=== PATIENT | female | born 1940 | race Caucasian/White ===

== ENCOUNTER 2016-09-08 06:59 | Day surgery (SDC) | payer OTHER ==
[2016-09-08] MEDS ORDERED: DIAZEPAM 5 MG TAB PO ONE (07:04)
[2016-09-08] MEDS ORDERED: ASPIRIN EC 325 MG TAB PO ONE (07:04)
[2016-09-08] MEDS ORDERED: NS 1,000 ML IV ONE (07:04)
[2016-09-08] MEDS ORDERED: FAMOTIDINE 20 MG TAB PO ONE (07:04)
--- NOTE | 2016-09-08 07:29 | CPEKG ---
Heart Rate: 64 RR Interval: 938 P-R Interval: 212 QRSD Interval: 86 QT Interval: 432 QTC Interval: 446 QRS [place]: 37 T Wave [place]: 0 EKG Severity - ABNORMAL ECG - EKG Impression: ATRIAL-PACED RHYTHM EKG Impression: BORDERLINE T ABNORMALITIES, DIFFUSE LEADS Electronically Signed By: Scotty Hartman 08-Sep-2016 19:37:39
[2016-09-08 07:40] LABS: % IMMATURE GRANULYOCYTES 0.2 % (0.0-1.1); ABSOLUTE IMMATURE GRANULOCYTES 0.01 10^3/uL (0.00-0.10); ADD DIFF? NO; ADD MORPH? NO; ADD SCAN? NO; ATYPICAL LYMPHOCYTE FLAG 10 (0-99); FRAGMENT RBC FLAG 0 (0-99); HEMATOCRIT 38.9 % (38.0-47.0); LEFT SHIFT FLG 0 (0-99); LIPEMIA HEMOLYSIS FLAG 80 (0-99); MEAN CELL HEMOGLOBIN 28.1 pg (27.9-34.1); MEAN CELL HEMOGLOBIN CONCENTR. 33.4 g/dL (32.4-36.7); MEAN CELL VOLUME 84.2 fL (81.5-99.8); PLATELET CLUMPS FLAG 0 (0-99); PLATELET COUNT 238 10^3/uL (150-400); RED BLOOD CELL COUNT 4.62 10^6/uL (4.18-5.33)
[2016-09-08 07:48] LABS: INR 1.5 (0.83-1.16); PROTIME(PATIENT) 18.1 SEC (12.0-15.0)
[2016-09-08] MEDS ORDERED: LIDOCAINE 1% 30 ML SDV ONE (07:55)
[2016-09-08 07:56] LABS: ANION GAP 10 mEq/L (8-16); CALCIUM 9.2 mg/dL (8.5-10.4); CARBON DIOXIDE 27 mEq/l (22-31); CHLORIDE 104 mEq/L (97-110); CHOLESTEROL 190 mg/dL (140-220); CHOLESTEROL/HDL RATIO 4.32 RATIO (1.00-4.44); CREATININE 0.7 mg/dL (0.6-1.0); GLOMERULAR FILTRATION RATE > 60; GLUCOSE 116 mg/dL (70-100); HIGH DENSITY LIPOPROTEIN 44 mg/dL (40-85); LDL/HDL RATIO 2.61 RATIO (1.00-3.22); LOW DENSITY LIPOPROTEIN 115 mg/dL (80-100); MAGNESIUM 1.8 mg/dL (1.6-2.3); NON-HIGH DENSITY LIPOPROTEIN 146 mg/dL (90-129); POTASSIUM 4.2 mEq/L (3.5-5.2); SODIUM 141 mEq/L (134-144); TRIGLYCERIDE 159 mg/dL (35-135); VERY LOW DENSITY LIPOPROTEINS 31 mg/dL (8-25)
[2016-09-08] MEDS ORDERED: fentaNYL 100 MCG/2 ML INJ ONE (07:56)
[2016-09-08] MEDS ORDERED: MIDAZOLAM 2 MG/2 ML VIAL ONE (07:56)
[2016-09-08] MEDS ORDERED: HEPARIN 10,000 UNIT/10 ML MDV ONE (07:56)
[2016-09-08] MEDS ORDERED: VERAPAMIL 5 MG/2 ML VIAL ONE (07:56)
[2016-09-08] MEDS ORDERED: IOPAMIDOL (ISOVUE-370) 150 ML BTL IV ONE ×2 (07:56→09:04)
[2016-09-08] MEDS ORDERED: ONDANSETRON 4 MG/2 ML VIAL IVP PRN (09:16)
[2016-09-08] MEDS ORDERED: NITROGLYCERIN 0.4 MG BTL SL PRN (09:16)
[2016-09-08] MEDS ORDERED: ATROPINE SULFATE 1 MG/10 ML SYR IVP PRN (09:16)
--- NOTE | 2016-09-08 09:20 | PDDXCAT ---
Diagnostic Cath Note - . Date: 09/08/16 [employer]: Mg Indication: CCC Class III and IV angina on medical treatment - Procedure Access: right wrist Procedure: left heart catheterization, coronary angiography, left ventriculogram - Materials Left Heart Cath size: 5F Left Heart Cath materials: other (SiteSeer) - Findings-Left Heart Catheterization LM: unobstructed LAD: unobstructed LCX: unobstructed RCA: dominant: Unobstructed EDP: 18 mm of mercury LVEF: 65% with hand injection Wall motion: normal Complications: none Estimated blood loss: <50ml Closure method: TR Band Assessment: 1. symptoms of nausea of uncertain etiology. 2. dynamic EKG changes with lateral T-wave inversion of uncertain etiology. 3. nonobstructive atherosclerotic cardiovascular disease. 4. normal left ventricular systolic function Plan: Return care to Dr. Monterroso. Broad differential diagnosis for persistent nausea. Continue aggressive secondary prevention for nonobstructive coronary artery disease. Patient Problems: Problems Problem Status Diagnosed Atrial flutter Acute Iatrogenic pneumothorax Acute Pacemaker Acute Acquired hypothyroidism Active Osteoarthritis of multiple joints Active back pain Active factor V mutatioin Active obstructive sleep apnea Active phlebitis history Active
== END 2016-09-08 12:10 | disposition home or self-care (01) ==
LOC: FCATH 06:59
PROVIDERS: ATTEND Internal Medicine Interventional Cardiology
PROC: 4A023N7 Measurement of Cardiac Sampling and Pressure, Left Heart, Percutaneous Approach (ICD-10-PCS; principal; 2016-09-08)
PROC: B2111ZZ Fluoroscopy of Multiple Coronary Arteries using Low Osmolar Contrast (ICD-10-PCS; 2016-09-08)
PROC: B2151ZZ Fluoroscopy of Left Heart using Low Osmolar Contrast (ICD-10-PCS; 2016-09-08)
DX: R11.0 Nausea (principal); I25.10 Atherosclerotic heart disease of native coronary artery without angina pectoris; R94.31 Abnormal electrocardiogram [ECG] [EKG]; I48.91 Unspecified atrial fibrillation; D68.51 Activated protein C resistance; Z79.01 Long term (current) use of anticoagulants; E03.9 Hypothyroidism, unspecified; G47.33 Obstructive sleep apnea (adult) (pediatric); R73.03 Prediabetes; I49.5 Sick sinus syndrome; E78.5 Hyperlipidemia, unspecified; Z95.0 Presence of cardiac pacemaker
CPT/HCPCS: 93005; 93458; C1769; J1644; J2250; J3010; Q9967

== ENCOUNTER → 2017-04-02 | Outpatient (CLI) | payer OTHER | LOC: FIMAGING 18:58 | PROVIDERS: ATTEND Internal Medicine | DX: M79.674 Pain in right toe(s) (principal) ==

== ENCOUNTER 2017-05-03 18:43 | Emergency (ER) | payer OTHER ==
--- NOTE | 2017-05-03 19:22 | CPEKG ---
Heart Rate: 64 RR Interval: 938 P-R Interval: 200 QRSD Interval: 80 QT Interval: 392 QTC Interval: 405 QRS [place]: 47 T Wave [place]: -43 EKG Severity - ABNORMAL ECG - EKG Impression: ATRIAL-PACED RHYTHM EKG Impression: BORDERLINE T ABNORMALITIES, DIFFUSE LEADS Electronically Signed By: Evelina Simms 03-May-2017 23:13:54
[2017-05-03 19:31] LABS: % IMMATURE GRANULYOCYTES 0.2 % (0.0-1.1); ABSOLUTE IMMATURE GRANULOCYTES 0.02 10^3/uL (0.00-0.10); ADD DIFF? NO; ADD MORPH? NO; ADD SCAN? NO; ATYPICAL LYMPHOCYTE FLAG 10 (0-99); FRAGMENT RBC FLAG 0 (0-99); HEMATOCRIT 38.3 % (38.0-47.0); HEMOGLOBIN 12.9 g/dL (12.6-16.3); LEFT SHIFT FLG 0 (0-99); LIPEMIA HEMOLYSIS FLAG 80 (0-99); MEAN CELL HEMOGLOBIN 28.7 pg (27.9-34.1); MEAN CELL HEMOGLOBIN CONCENTR. 33.7 g/dL (32.4-36.7); MEAN CELL VOLUME 85.1 fL (81.5-99.8); MEAN PLATELET VOLUME 11.1 fL (8.7-11.7); PLATELET CLUMPS FLAG 10 (0-99); PLATELET COUNT 262 10^3/uL (150-400); RED CELL DISTRIBUTION WIDTH 13.9 % (11.5-15.2)
--- NOTE | 2017-05-03 19:37 | EDPHY ---
H & P Stated Complaint: Dizzy,had pacemaker interrogated,had afib during night,doesn' t feel good Time Seen by Provider: 05/03/17 19:25 HPI/ROS: CHIEF COMPLAINT: Lightheadedness HISTORY OF PRESENT ILLNESS: This patient is a 76 year old female with history of vertigo and atrial fibrillation (pacemaker) arriving with her complaining of dizziness onset yesterday morning upon waking. She felt very imbalanced and as if the room was spinning. Associated with nausea. She took Meclizine which relieved her typical vertigo symptoms. Last night, she felt as if she could not catch her breath while lying in bed. Today, her dizziness has resolved but she feels lightheaded. She visited her trade specialist at [facility] today, who interrogated her pacemaker and noted she was in atrial fibrillation last night during the time that she was short of breath. She usually feels short of breath when she is in atrial fibrillation. She continues to feel lightheaded at this time. The lightheaded sensation is fairly frequent for her, but different from the vertigo. No fever, vomiting, chest pain, or other associated symptoms. REVIEW OF SYSTEMS: A 10 point review of systems was performed and is negative with the exception of the elements mentioned in the history of present illness. - Personal History Current Tetanus Diphtheria and Acellular Pertussis (TDAP): Yes Tetanus Vaccine Date: 2009 - Medical/Surgical History PMH: Hypothyroid, Hypertension, Vertigo, Migraines, Obstructive sleep apnea, Atrial fibrillation (pacemaker), Factor 5 Leiden, Thyroidectomy, Hysterectomy, Lumpectomy Hx Asthma: Yes Hx Chronic Respiratory Disease: No Hx Diabetes: Yes Hx Cardiac Disease: Yes Hx Renal Disease: No Hx Cirrhosis: No Hx Alcoholism: No Hx HIV/AIDS: No Hx Splenectomy or Spleen Trauma: No Other PMH: Hypothyroid, HTN, Factor 5 Leiden, vertigo, migraines, thyroidectomy , hysterectomy, lumpectomy, Oxygen at night, NICK, pacemaker for afib - Social History Smoking Status: Never smoked Additional Social History: Nonsmoker. . at bedside. Lives in [place]. - Physical Exam Exam: General Appearance: Alert, no distress Eyes: Slight nystagmus with rightward gaze. Pupils equal and round, no conjunctival pallor or injection ENT, Mouth: Mucous membranes moist Neck: Normal inspection Respiratory: Lungs are clear to auscultation Cardiovascular: Regular rate and rhythm Gastrointestinal: Abdomen is soft and non- tender Neurological: A&O, nonfocal, normal gait Skin: Warm and dry, no rash Extremities: Nontender, no pedal edema Psychiatric: Mood and affect normal Constitutional: Initial Vital Signs Temperature (C) 36.6 C 05/03/17 18:57 Heart Rate 71 05/03/17 18:57 Respiratory Rate 18 05/03/17 18:57 Blood Pressure 162/74 H 05/03/17 18:57 O2 Sat (%) 94 05/03/17 18:57 O2 Delivery Mode Room Air Allergies/Adverse Reactions: amiodarone Allergy (Severe, Verified 05/03/17 18:57) scopolamine Allergy (Intermediate, Verified 05/03/17 18:57) Rash Opioids - Morphine Analogues Allergy (Mild, Verified 05/03/17 18:57) Other-Enter Comments Antihistamines - Ethanolamine Allergy (Verified 05/03/17 18:57) Anxiety Home Medications: Medication Instructions Recorded Cholecalciferol Vit D3 [Vitamin D3 4,000 units PO DAILY 05/05/12 2000 units] Cyclobenzaprine [Flexeril 10 MG 5 mg PO HS 05/05/12 (*)] [place]-3 Fatty Acids [Fish Oil 1000 1,000 mg PO BID 05/05/12 mg (*)] traZODone [traZODONE 50MG (*)] 25 mg PO HS 05/05/12 Omeprazole 20 mg PO DAILY 12/28/13 Levothyroxine [Synthroid 50 mcg 50 mcg PO DAILY06 #30 tab 07/09/14 (*)] Albuterol [Proventil] 17 gm IH Q6 PRN 11/03/15 Colestipol HCl [Colestid (*)] 1 gm PO BID 11/03/15 Magnesium Oxide [Magnesium Oxide 250 mg PO DAILY 11/03/15 400 mg (*)] Propafenone HCl [Rythmol 150mg (*)] 150 mg PO TID 11/03/15 Vitamin E 400 unit PO DAILY 11/03/15 amLODIPine BESYLATE [Norvasc 5 mg 5 mg PO HS 11/03/15 (*)] Acetaminophen [Tylenol 325mg (*)] 650 mg PO Q4 PRN #0 tab 11/04/15 Coumadin 6 mg PO DAILY 09/08/16 Coumadin 5MG (*) 5 mg PO DAILY 09/08/16 Meclizine HCl [Meclizine HCl 25 mg 25 mg PO 05/03/17 (RX,OTC)] Medical Decision Making - Diagnostics EKG Interpretation: EKG interpreted by me reveals atrial paced rhythm, rate 64. Interpretation: apaced rhythm. ED Course/Re-evaluation: 76 year old female with history of afib and vertigo presents with lightheadedness. Plan to consult with СЕРГЕЙ Guido as requested by the patient. Plan for labs including CBC, BMP, and Coag. Plan for EKG. EKG shows atrial paced rhythm. 19:44 Consulted with СЕРГЕЙ Guido. This patient has a frequent history of dizziness and lightheadedness symptoms. He will follow up with her in the office. The patient is okay to be discharged home. Labs unremarkable. Plan to discharge home in good condition. Follow up and return precautions discussed. The patient is comfortable with this plan. Differential Diagnosis: Differential diagnosis includes though is not limited to cardiac dysrhythmia, CVA, TIA, GI bleed, sepsis, hypoglycemia. - Data Points Laboratory Results: Laboratory Results 05/03/17 19:25 05/03/17 19:25 Medications Given: Discontinued Medications Lorazepam (Ativan Injection) 0.5 mg IVP EDNOW ONE Stop: 05/03/17 19:49 Last Admin: 05/03/17 20:30 Dose: Not Given Departure - Departure Disposition: Home, Routine, Self-Care Clinical Impression: Dizziness Condition: Good Instructions: Dizziness (ED) Additional Instructions: 1. Follow up with your primary care provider in 2-3 days for continued evaluation. 2. Return to the emergency department for chest pain, shortness of breath, severe headache, numbness, weakness, worsening dizziness, vomiting, or other worsening of condition. Referrals: Aly Monterroso MD [Primary Care Provider] - As per Instructions Report Scribed for: Evelina Simms Report Scribed by: Cass Scott Date of Report: 05/03/17 Time of Report: 19:37 Physician Review and Approval Statement: 05/03/17 19:37 Portions of this note were transcribed by a director medical. I personally performed a history, physical exam, medical decision making, and confirmed accuracy of information the transcribed note.
[2017-05-03] MEDS ORDERED: LORazepam 2 MG/ML INJ IVP ONE (19:48)
[2017-05-03 19:59] LABS: INR 1.87 (0.83-1.16); PROTIME(PATIENT) 21.6 SEC (12.0-15.0)
[2017-05-03 20:23] LABS: ANION GAP 15 mEq/L (8-16); CALCIUM 9.2 mg/dL (8.5-10.4); CARBON DIOXIDE 18 mEq/l (22-31); CHLORIDE 104 mEq/L (97-110); CREATININE 0.7 mg/dL (0.6-1.0); GLOMERULAR FILTRATION RATE > 60; GLUCOSE 94 mg/dL (70-100); POTASSIUM 4.4 mEq/L (3.5-5.2); SODIUM 137 mEq/L (134-144); SPECIMEN HEMOLYSIS 121
[2017-05-03 21:03] VITALS: BP 155/72; PULSE 66; RESP 16; TEMP 97.3; O2SAT 95
== END 2017-05-03 20:59 | disposition home or self-care (01) ==
DX: R42 Dizziness and giddiness (principal); I10 Essential (primary) hypertension; J45.909 Unspecified asthma, uncomplicated; E11.9 Type 2 diabetes mellitus without complications; Z95.0 Presence of cardiac pacemaker
CPT/HCPCS: J2060